=== PATIENT | male | born 1950 | race Caucasian/White ===

== ENCOUNTER 2018-06-23 14:25 | Emergency (ER) | payer MEDICARE, BC | END 2018-06-23 14:48 | disposition home or self-care (01) | LOC: BURERS 14:25 | DX: R04.0 Epistaxis (principal); Z79.01 Long term (current) use of anticoagulants; Z79.899 Other long term (current) drug therapy; Z79.891 Long term (current) use of opiate analgesic | CPT/HCPCS: 30901; 99283 ==

== ENCOUNTER 2018-06-24 00:16 | Emergency (ER) | payer MEDICARE, BC ==
[2018-06-24] MEDS ORDERED: hydrOXYzine 25 MG TAB ONE (00:43)
[2018-06-24] MEDS ORDERED: AMOXicillin 250 MG CAP ONE ×2 (00:44→00:47)
[2018-06-24] MEDS ORDERED: Ondansetron ODT 4 MG TAB ONE (00:44)
== END 2018-06-24 01:03 | disposition home or self-care (01) ==
LOC: BURERS 00:16
DX: R04.0 Epistaxis (principal); I10 Essential (primary) hypertension; E78.00 Pure hypercholesterolemia, unspecified; Z79.899 Other long term (current) drug therapy
CPT/HCPCS: 30903; Q0162

== ENCOUNTER 2018-06-24 15:56 | Emergency (ER) | payer MEDICARE, BC | END 2018-06-24 16:45 | disposition home or self-care (01) | LOC: BURERS 15:56 | DX: R04.0 Epistaxis (principal); I10 Essential (primary) hypertension; I25.10 Atherosclerotic heart disease of native coronary artery without angina pectoris; F17.210 Nicotine dependence, cigarettes, uncomplicated; Z79.01 Long term (current) use of anticoagulants; Z79.899 Other long term (current) drug therapy; Z79.891 Long term (current) use of opiate analgesic ==